=== PATIENT | male | born 1955 | race Caucasian/White ===

== ENCOUNTER 2021-01-25 00:54 | Day surgery (SDC) | payer MEDICARE, SELFPAY ==
[2021-01-05 13:56] VITALS: BMI 21.8
[2021-01-25 07:43] VITALS: BP 136/91; PULSE 103; RESP 18; TEMP 36.4; O2SAT 98; BMI 20.5
[2021-01-25] MEDS: LACTATED RINGERS 1,000 ML 150 ML IV CONT (07:52)
--- NOTE | 2021-01-25 07:58 | WPDANESEPPF ---
Anes - Initial Pre Proc Eval Procedure: Operation Date: 01/25/21 08:30 Proposed Procedures p Screening Colonoscopy - Jesse Presley MD Date/Time: 01/25/21 07:58 Surgeon: Jesse Presley MD Pre Op Diagnosis: neoplasm screening Patient Data Age: 65 Gender: M Height: 1.85 m Weight: 70.4 kg Last Vital Signs Temp 36.4 C L 01/25/21 07:43 Pulse 103 H 01/25/21 07:43 Resp 18 01/25/21 07:43 BP 136/91 H 01/25/21 07:43 Pulse Ox 98 01/25/21 07:43 Allergies Allergy/AdvReac Type Severity Reaction Status Date / Time No Known Allergies Allergy Verified 01/25/21 07:42 Home Medications Medication Instructions Recorded Confirmed Type simvastatin 5 mg tablet See Rx Instructions .ROUTE 08/18/20 01/05/21 Rx .COMPLEX #90 tablet levothyroxine 175 mcg tablet See Rx Instructions .ROUTE 09/14/20 01/05/21 Rx .COMPLEX #90 tablet lisinopril 10 mg tablet See Rx Instructions .ROUTE 12/07/20 01/05/21 Rx .COMPLEX #90 tablet hydroxyzine HCl 10 mg tablet See Rx Instructions .ROUTE 01/06/21 01/25/21 Rx .COMPLEX #30 tablet Patient hx anesthesia problems: none Family hx anesthesia problems: none PMFSH Past Medical History Medical History Hepatitis C antibody test negative (03/04/17) Hypertension Metabolic syndrome X Mixed hyperlipidemia Prediabetes Tonsillar cancer Surgical History Surgical History History of colonoscopy History of radical neck surgery Family History Family History Sibling Hypertension Family history of elevated blood lipids Malignant neoplasm of prostate Father Hypertension Family history of elevated blood lipids Cerebrovascular accident Grandparent Family history of coronary artery disease Mother Patient's mother is , Onset Age: 60 Social History Social History Smoking packs per day: 1 Smoking cigarettes per day: 20.0 Years smoked: 30 Smoking pack-years: 30.00 Smoking status: Former smoker Tobacco type: cigarettes Additional smoking assessment comments: pt quit 16 years ago Alcohol intake: current Drinks per week: 2 Living arrangements: with family Gender identity (if verbalized by the patient): Male Spiritual care concerns: No Anes - Eval Final PreProcedure Day of Procedure 01/25/21 07:58 Patient weight: normal Heart: regular rate and rhythm Lungs: clear to auscultation Airway: Mallampati scale class 1 and other (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 Questions were solicited and answers provided to the satisfaction of the patient/family/POA.
--- NOTE | 2021-01-25 08:01 | WPDGICN ---
Assessment and Plan Assessment and plan (1) Encounter for screening colonoscopy: Code(s): Z12.11 - Encounter for screening for malignant neoplasm of colon Status: Acute Assessment and Plan: Patient presents for screening colonoscopy because of his age. Last exam was in 2009. GI Consult Note Consult date/time: 01/25/21 08:01 HPI: Clifton Quintana is a 65 year old male presents for screening colonoscopy. Patient states his current weight appetite bowel movements are normal. His last colonoscopy was more than 10 years ago in 2009. Patient reports that no family members have had colon polyps. His bowel habits are normally denies any blood in his stools. Review of Systems Review of Systems: All systems reviewed & are unremarkable except as noted in HPI and below PMFSH Past Medical History Medical History Hepatitis C antibody test negative (03/04/17) Hypertension Metabolic syndrome X Mixed hyperlipidemia Prediabetes Tonsillar cancer Surgical History Surgical History History of colonoscopy History of radical neck surgery Family History Family History Sibling Hypertension Family history of elevated blood lipids Malignant neoplasm of prostate Father Hypertension Family history of elevated blood lipids Cerebrovascular accident Grandparent Family history of coronary artery disease Mother Patient's mother is , Onset Age: 60 Social History Social History Smoking packs per day: 1 Smoking cigarettes per day: 20.0 Years smoked: 30 Smoking pack-years: 30.00 Smoking status: Former smoker Tobacco type: cigarettes Additional smoking assessment comments: pt quit 16 years ago Alcohol intake: current Drinks per week: 2 Living arrangements: with family Gender identity (if verbalized by the patient): Male Spiritual care concerns: No Meds Home Medications and Allergies Home Medications Medication Instructions Recorded Confirmed Type simvastatin 5 mg tablet See Rx Instructions .ROUTE 08/18/20 01/05/21 Rx .COMPLEX #90 tablet levothyroxine 175 mcg tablet See Rx Instructions .ROUTE 09/14/20 01/05/21 Rx .COMPLEX #90 tablet lisinopril 10 mg tablet See Rx Instructions .ROUTE 12/07/20 01/05/21 Rx .COMPLEX #90 tablet hydroxyzine HCl 10 mg tablet See Rx Instructions .ROUTE 01/06/21 01/25/21 Rx .COMPLEX #30 tablet Allergies Allergy/AdvReac Type Severity Reaction Status Date / Time No Known Allergies Allergy Verified 01/25/21 07:42 Vital Signs Vital Signs - 24 hr 01/25/21 07:43 Temperature 97.5 F L Pulse Rate 103 H Respiratory Rate 18 Blood Pressure 136/91 H Pulse Oximetry 98 Exam Narrative: Exam Narrative: Physical exam reveals patient be alert. Vital signs stable. HEENT exam is unremarkable. Patient is anicteric. Lungs are clear to auscultation and percussion. Heart is without murmur or extra sounds. Abdominal exam bowel sounds are present soft nontender with no organomegaly. Digital external rectal exam is normal.
[2021-01-25] MEDS: SIMETHICONE ORAL SUSPENSION 20 MG/0.3 ML 30 ML BOTTLE 0.6 ML IRRIGATION (08:41)
[2021-01-25 08:51] VITALS: BP 84/56; PULSE 84; RESP 22; O2SAT 98
[2021-01-25 09:01] VITALS: BP 98/66; PULSE 80; RESP 20; O2SAT 99
[2021-01-25 09:11] VITALS: BP 100/68; PULSE 78; RESP 22; O2SAT 100
== END 2021-01-25 09:16 | disposition home or self-care (01) ==
PROVIDERS: PCP Family Medicine; Visit Provider Internal Medicine Gastroenterology
PROC: 0DJD8ZZ Inspection of Lower Intestinal Tract, Via Natural or Artificial Opening Endoscopic (ICD-10-PCS; CPT 45378; principal; 2021-01-25 08:30)
DX: Z12.11 Encounter for screening for malignant neoplasm of colon (principal); Z86.19 Personal history of other infectious and parasitic diseases; K64.8 Other hemorrhoids; K57.30 Diverticulosis of large intestine without perforation or abscess without bleeding; I10 Essential (primary) hypertension; I20.9 Angina pectoris, unspecified; R73.03 Prediabetes; E78.2 Mixed hyperlipidemia; Z85.850 Personal history of malignant neoplasm of thyroid; E03.9 Hypothyroidism, unspecified; Z87.891 Personal history of nicotine dependence
CPT/HCPCS: G0121; J2704; J7120

== ENCOUNTER → 2021-09-08 02:18 | Outpatient (CLI) | payer MEDICARE, SELFPAY ==
[2021-09-08 12:37] LABS: SARS-CoV-2 RNA PCR Negative
== END ==
PROVIDERS: PCP Family Medicine; Visit Provider Family Medicine
DX: R68.89 Other general symptoms and signs (principal); Z20.822 Contact with and (suspected) exposure to COVID-19
CPT/HCPCS: C9803; U0003; U0005

== ENCOUNTER 2023-12-09 09:09 | Emergency (ER) | payer MEDICARE, SELFPAY ==
[2023-12-09 09:19] VITALS: BP 157/96; PULSE 112; RESP 16; TEMP 36.5; O2SAT 96
--- NOTE | 2023-12-09 09:35 | ED.URI ---
HPI - URI/Sore Throat General Chief Complaint: Upper Respiratory Infection Stated Complaint: Cough,Congestion Time Seen by Provider: 12/09/23 09:35 Source: patient, RN notes reviewed and old records reviewed Mode of arrival: ambulatory Limitations: no limitations History of Present Illness HPI Narrative: 68-year-old male to Express Care for complaint of sinus drainage, dry cough for 1.5 weeks. patient reports cough recently became productive with yellow sputum. Patient has been attempting to treat at home with [id number] medications with some improvement. Patient has also tried utilizing inhaler which was not helpful. Patient denies shortness of breath, fever, headache, ear pain, shortness of breath, chest pain. patient in no acute distress. Respirations even and nonlabored. Patient able to tolerate fluids by mouth. Related Data Home Medications Medication Instructions Recorded Confirmed albuterol sulfate 90 mcg/actuation 2 inh inhalation DIRECTED 12/09/23 12/09/23 aerosol inhaler (Ventolin HFA) Allergies Allergy/AdvReac Type Severity Reaction Status Date / Time No Known Allergies Allergy Verified 12/09/23 09:15 Review of Systems Review of Systems: All systems reviewed & are unremarkable except as noted in HPI and below Constitutional: Constitutional: Reports as per HPI and Denies fever(s) Eyes: Eyes: Reports no additional eye complaints ENT: Reports as per HPI, Reports nasal congestion and Reports nasal discharge Cardiovascular: Cardiovascular: Reports no additional cardiovascular complaints, Denies chest pain and Denies dyspnea Respiratory: Respiratory: Reports no additional respiratory complaints, Reports cough and Denies dyspnea Musculoskeletal: Musculoskeletal: Reports no additional musculoskeletal complaints Neurologic: Reports system reviewed and no additional complaints, except as documented Psychiatric: Psychiatric: Reports no additional psychiatric complaints [facility] Past Medical History Medical History Hepatitis C antibody test negative (03/04/17) Hypertension Metabolic syndrome X Mixed hyperlipidemia Prediabetes Tonsillar cancer Surgical History Surgical History History of colonoscopy History of radical neck surgery Family History Family History Sibling Hypertension Family history of elevated blood lipids Malignant neoplasm of prostate Father Hypertension Family history of elevated blood lipids Cerebrovascular accident Grandparent Family history of coronary artery disease Mother Patient's mother is , Onset Age: 60 Social History Social History Social History: Caffeine-daily coffee Smoking packs per day: 1 Smoking cigarettes per day: 20.0 Years smoked: 30 Smoking pack-years: 30.00 Smoking status: Former smoker Tobacco type: cigarettes Smoking end date: 07/17/02 Additional smoking assessment comments: pt quit 16 years ago Alcohol intake: current Alcohol use details: very little Substance use: never Substance use type: does not use Lack of Transportation: No Lack of Food: Never True Current Housing: I Have Housing Concerned About Future Housing: No Difficulty Paying Gas/Electric Bills: No Difficulty Paying for Meds: No Currently Unemployed: No Education: Bachelor's Degree Difficulty w/ Childcare or Family Care: No Living arrangements: with family Gender identity (if verbalized by the patient): Male Spiritual care concerns: No Comments At the time of my signature, I reviewed and agree with the nursing past medical, surgical, social, and family history. There is no relevant family history pertinent to the patient complaint. Exam Const: Genera
== END 2023-12-09 09:52 | disposition home or self-care (01) ==
PROVIDERS: Emergency Provider Nurse Practitioner Family; PCP Family Medicine
DX: R05.9 Cough, unspecified (principal); Z87.891 Personal history of nicotine dependence; I10 Essential (primary) hypertension; E78.2 Mixed hyperlipidemia; E88.810 Metabolic syndrome
CPT/HCPCS: 99213; G0463

== ENCOUNTER 2024-05-17 13:24 | Emergency (ER) | payer MEDICARE, SELFPAY ==
--- NOTE | ~2024-05-17 | XR_ITS ---
EXAMINATION: XR chest 2V DATE: 05/17/2024 13:46 INDICATION: Lung crackles. TECHNIQUE: Frontal and lateral views of the chest were obtained. COMPARISON: None. FINDINGS: There is no pneumonia, pleural effusion, or pneumothorax. The heart size is normal. IMPRESSION: 1. No acute cardiopulmonary disease. Reviewed, dictated and finalized at location B.
[2024-05-17 13:33] VITALS: BP 156/102; PULSE 97; RESP 16; TEMP 36.8; O2SAT 97
--- NOTE | 2024-05-17 13:48 | ED.URI ---
HPI - URI/Sore Throat General Chief Complaint: Upper Respiratory Infection Stated Complaint: Cough Time Seen by Provider: 05/17/24 13:49 Source: patient, RN notes reviewed and old records reviewed Mode of arrival: ambulatory Limitations: no limitations History of Present Illness HPI Narrative: 60-year-old male to [facility] Care with complaint of nonproductive cough and nasal drainage for 2 weeks. Patient states he had a low-grade fever over past 24 hours that has resolved. Patient denies shortness of breath, pain , allergies. Patient endorses negative COVID test on day 3 of symptoms. Patient able to tolerate fluids by mouth. Respirations even and nonlabored. Patient able to speak in complete sentences without difficulty. Patient in no acute distress. Related Data Allergies Allergy/AdvReac Type Severity Reaction Status Date / Time No Known Allergies Allergy Verified 05/17/24 13:38 Review of Systems Review of Systems: All systems reviewed & are unremarkable except as noted in HPI and below Constitutional: Constitutional: Reports as per HPI and Reports fever(s) Eyes: Eyes: Reports no additional eye complaints ENT: Reports as per HPI and Reports nasal discharge Cardiovascular: Cardiovascular: Reports no additional cardiovascular complaints, Denies chest pain and Denies dyspnea Respiratory: Respiratory: Reports no additional respiratory complaints, Reports cough and Denies dyspnea Musculoskeletal: Musculoskeletal: Reports no additional musculoskeletal complaints Neurologic: Reports system reviewed and no additional complaints, except as documented Psychiatric: Psychiatric: Reports no additional psychiatric complaints [facility] Past Medical History Medical History Hepatitis C antibody test negative (03/04/17) Hypertension Metabolic syndrome X Mixed hyperlipidemia Prediabetes Tonsillar cancer Surgical History Surgical History History of colonoscopy History of radical neck surgery Family History Family History Sibling Hypertension Family history of elevated blood lipids Malignant neoplasm of prostate Father Hypertension Family history of elevated blood lipids Cerebrovascular accident Grandparent Family history of coronary artery disease Mother Patient's mother is , Onset Age: 60 Social History Social History Social History: Caffeine-daily coffee Smoking packs per day: 1 Smoking cigarettes per day: 20.0 Years smoked: 30 Smoking pack-years: 30.00 Smoking status: Former smoker Tobacco type: cigarettes Smoking end date: 07/17/02 Additional smoking assessment comments: pt quit 16 years ago Alcohol intake: current Alcohol use details: very little Substance use: never Substance use type: does not use Lack of Transportation: No Lack of Food: Never True Current Housing: I Have Housing Concerned About Future Housing: No Difficulty Paying Gas/Electric Bills: No Difficulty Paying for Meds: No Currently Unemployed: No Education: Bachelor's Degree Difficulty w/ Childcare or Family Care: No Living arrangements: with family Gender identity (if verbalized by the patient): Male Spiritual care concerns: No Comments At the time of my signature, I reviewed and agree with the nursing past medical, surgical, social, and family history. There is no relevant family history pertinent to the patient complaint. Exam Const: General: cooperative, comfortable, no acute distress, well developed, alert, well groomed and well nourished Nutritional Appearance: well nourished Orientation/consciousness: patient oriented x3 Limitations: no limitations HENMT: Head: normal to inspection Ears: external ears normal Face/Nose/Sinus: Normal external nose present, Normal nares present, normal facial exam, No erythema and No edema Face and sinus: normal facial exam, no erythema and no edema Mouth: Yes Normal oral and palatal mucosa present Eyes: General: appearance normal, both eyes and all related structures Neck: Neck: normal visual inspection, full ROM and no meningeal signs Chest: Chest palpation & inspection: normal inspection of the chest Resp: Effort & Inspection: normal respiratory effort and able to speak in complete sentences Auscultation: clear to auscultation bilaterally Cardio: Jugular venous distension: no JVD Rate: regular rate Rhythm: regular rhythm Back/Spine/Pelvis: Cervical Spine: cervical ROM normal Skin: General skin exam: normal color, no rashes or lesions noted and turgor normal Neuro: General: patient oriented x3, gait normal, moves all extremities and no meningeal signs Speech: normal speech Gait exam (Neuro): Normal gait present Extrem: General: normal to inspection, full ROM and capillary refill normal Psych: Appearance: grossly normal and well kempt Course Course Emergency Course: Some parts of this dictation were generated by voice recognition software and may contain typographical and/or grammatical inaccuracies. Level of Care: Express Care Visit Vital Signs Vital signs: Vital Signs Temperature 36.8 C 05/17/24 13:33 Pulse Rate 97 05/17/24 13:33 Respiratory Rate 16 05/17/24 13:33 Blood Pressure 156/102 H 05/17/24 13:33 Pulse Oximetry 97 05/17/24 13:33 Temperature 36.8 C 05/17/24 13:33 Pulse Rate 97 05/17/24 13:33 Respiratory Rate 16 05/17/24 13:33 Blood Pressure 148/98 H 05/17/24 13:54 Pulse Oximetry 97 05/17/24 13:33 reviewed MDM - URI/Sore Throat MDM Narrative Medical decision making narrative: 60-year-old male to Express Care with complaint of nonproductive cough and nasal drainage for 2 weeks. Patient states he had a low-grade fever over past 24 hours that has resolved. Patient denies shortness of breath, pain , allergies. Patient endorses negative COVID test on day 3 of symptoms. Patient able to tolerate fluids by mouth. Respirations even and nonlabored. Patient able to speak in complete sentences without difficulty. Patient in no acute distress. patient exam unremarkable. Chest X-ray negative for acute findings. Patient is sitting comfortably in exam room nontoxic in appearance. Patient appropriate for outpatient treatment and follow-up. Discharge instructions reviewed with patient, as well as provided in writing per nursing staff. The instructions also include specific and strict return/GO TO THE ER as well as f/u information. All questions have been answered, and the patient deny any further questions with discharge and discharge plan. Some parts of this dictation were generated by voice recognition software and may contain typographical and/or grammatical inaccuracies. Differential Diagnosis Differential diagnosis: Likely upper respiratory infection, croup, otitis media, sinusitis, viral infection, bronchitis, influenza and pharyngitis Imaging Data Radiologist's impression: EXAMINATION: XR chest 2V DATE: 05/17/2024 13:46 INDICATION: Lung crackles. TECHNIQUE: Frontal and lateral views of the chest were obtained. COMPARISON: None. FINDINGS: There is no pneumonia, pleural effusion, or pneumothorax. The heart size is normal. IMPRESSION: 1. No acute cardiopulmonary disease. Discharge Plan Discharge Clinical Impression: Acute left otitis media Patient Disposition: Home, Self-Care Condition: Stable Instructions: Ear Infection (ED) Additional Instructions: -Alternate Tylenol and Motrin per package directions for fever or pain. -Antihistamine medication such as Benadryl at night and Zyrtec/Claritin/Mariana during the day can help improve symptoms. -Use Flonase twice a day for 5 days then daily to help reduce the inflammation and dry up your sinuses. -You can also use Coricidin. Be sure to drink plenty of water with these medications at least 8 ounces with every dose and it is important to drink 8 to 10 glasses of water per day. Water is a natural decongestant -Eat and drink things that are easy to swallow, like tea or soup, or popsicles. -Oral rinses such as: Salt water gargles and/or may use topical anesthetic (eg. Chloraseptic spray) or lozenges to relieve dryness or throat pain). -Frequent hand washing or hand contour stitcher is one of the best ways to prevent spread of infection. -Using a vaporizer or humidifier at night will also help thin secretions and help with coughing up phlegm. -Follow up with primary care provider in 2-3 days if condition is not improving; or seek ER visit if you have trouble breathing, cannot drink enough fluids, have muffled voice, difficulty opening your mouth, or severe swelling. Prescriptions: New amoxicillin 875 mg tablet 875 mg PO Q12H Qty: 20 0RF methylprednisolone [Medrol (Manjeet)] 4 mg tablets,dose pack See Rx Instructions .ROUTE .COMPLEX Qty: 21 0RF Rx Instructions: per package instructions No Action levothyroxine 175 mcg tablet 175 mcg PO DAILY Qty: 90 1RF hydroxyzine HCl 25 mg tablet 25 mg PO TID PRN (Reason: anxiety) Qty: 60 1RF losartan 50 mg tablet 50 mg PO DAILY Qty: 90 1RF simvastatin 5 mg tablet 5 mg PO DAILY Qty: 90 1RF Follow-up/Referrals: Aurora Roman DO [Primary Care Provider] -
[2024-05-17 13:54] VITALS: BP 148/98
== END 2024-05-17 14:05 | disposition home or self-care (01) ==
PROVIDERS: Emergency Provider Nurse Practitioner Family; PCP Family Medicine
DX: H66.92 Otitis media, unspecified, left ear (principal); Z87.891 Personal history of nicotine dependence; I10 Essential (primary) hypertension; E78.2 Mixed hyperlipidemia; E88.810 Metabolic syndrome; Z85.818 Personal history of malignant neoplasm of other sites of lip, oral cavity, and pharynx
CPT/HCPCS: 71046; 99213; G0463